=== PATIENT | male | born 1960 | race Caucasian/White ===

== ENCOUNTER 2023-03-09 20:37 | Inpatient (IN) | payer OTHER ==
[2023-03-09 21:10] VITALS: BMI 27.6
[2023-03-09] MEDS ORDERED: ACETAMINOPHEN 325 MG TABLET (FP) PO PRN ×2 (22:12)
[2023-03-09] MEDS ORDERED: MAG HYDROX/AL HYDROX/SIMETH 30 ML UNIT-DOSE CUP PO PRN (22:12)
[2023-03-09] MEDS ORDERED: DICYCLOMINE HCL 10 MG CAPSULE PO PRN (22:12)
[2023-03-09] MEDS ORDERED: BENZOCAINE/MENTHOL (CHLORASEPTIC ) LOZENGE MM PRN (22:12)
[2023-03-09] MEDS ORDERED: ONDANSETRON *ODT* 4 MG TABLET SL PRN (22:12)
[2023-03-09] MEDS ORDERED: BENZONATATE 200 MG CAPSULE PO PRN (22:12)
[2023-03-09] MEDS ORDERED: P-EPHED 60MG/TRIPROLIDI 2.5MG TABLET PO PRN (22:12)
[2023-03-09] MEDS ORDERED: POLYETHYLENE GLYCOL (HEALTHYLAX) 3350 17 GM PACKET PO PRN (22:12)
[2023-03-09] MEDS ORDERED: LOPERAMIDE HCL 2 MG CAPSULE PO PRN (22:12)
[2023-03-09] MEDS ORDERED: MAGNESIUM HYDROX 2400MG/30ML ORAL SUSPENSION 30 ML CUP PO PRN (22:12)
[2023-03-09] MEDS ORDERED: guaiFENesin 600 MG TABLET.ER (FP) PO PRN (22:12)
[2023-03-09] MEDS ORDERED: chlordiazePOXIDE HCL 25 MG CAPSULE PO PRN (22:14)
[2023-03-10] MEDS: chlordiazePOXIDE HCL 25 MG CAPSULE PO SCH ×5 (01:45→22:23)
[2023-03-10] MEDS ORDERED: cloNIDine HCL 0.1 MG TABLET PO ONE (02:03)
[2023-03-10 09:40] LABS: HEMATOCRIT 37.9 % (35.4-49); HEMOGLOBIN 12.9 GM/dL (11.7-16.9); MCH 31.5 pg (25.7-33.7); MEAN CELL VOLUME 92.8 fl (80-96); MEAN PLT VOLUME 7.5 fl (7.5-11.1); PLATELET COUNT 292 10^3/uL (134-434); RBC 4.08 M/mm3 (4.00-5.60); RDW 14.1 % (11.9-15.9); WHITE BLOOD COUNT 6.5 K/mm3 (4.0-10.0)
[2023-03-10 09:48] LABS: POTASSIUM 3.7 mmol/L (3.5-5.1)
[2023-03-10 09:54] LABS: CALCIUM 8.9 mg/dL (8.5-10.1)
[2023-03-10 09:55] LABS: BLOOD UREA NITROGEN 10.5 mg/dL (7-18); CREATININE 0.6 mg/dL (0.55-1.3)
[2023-03-10 09:57] LABS: TOT PROT 5.7 g/dl (6.4-8.2)
[2023-03-10 09:59] LABS: BILIRUBIN,TOTAL 0.4 mg/dL (0.2-1)
[2023-03-10] MEDS: hydrOXYzine PAMOATE 25 MG CAPSULE (FP) PO PRN (10:31)
[2023-03-10] MEDS: PRENATAL VITAMINS W/ FOLIC ACID TABLET (FP) PO SCH (10:32)
[2023-03-10] MEDS: THIAMINE HCL 100 MG TABLET (FP) PO SCH (22:23)
[2023-03-10] MEDS: MELATONIN 5 MG TABLETS PO SCH (22:25)
[2023-03-11] MEDS: chlordiazePOXIDE HCL 25 MG CAPSULE PO SCH ×4 (05:37→22:20)
[2023-03-11] MEDS: hydrOXYzine PAMOATE 25 MG CAPSULE (FP) PO PRN ×2 (10:21→18:33)
[2023-03-11] MEDS: PRENATAL VITAMINS W/ FOLIC ACID TABLET (FP) PO SCH (10:21)
[2023-03-11] MEDS: MELATONIN 5 MG TABLETS PO SCH (22:20)
[2023-03-11] MEDS: THIAMINE HCL 100 MG TABLET (FP) PO SCH (22:20)
[2023-03-12] MEDS ORDERED: chlordiazePOXIDE HCL 10 MG CAPSULE PO PRN
[2023-03-12] MEDS ORDERED: chlordiazePOXIDE HCL 10 MG CAPSULE PO SCH (05:00)
[2023-03-12] MEDS: hydrOXYzine PAMOATE 25 MG CAPSULE (FP) PO PRN ×2 (10:33→20:44)
[2023-03-12] MEDS: PRENATAL VITAMINS W/ FOLIC ACID TABLET (FP) PO SCH (10:33)
[2023-03-12] MEDS: diazePAM 5 MG TABLET PO PRN ×2 (11:13→19:49)
[2023-03-12] MEDS: MELATONIN 5 MG TABLETS PO SCH (22:17)
[2023-03-12] MEDS: THIAMINE HCL 100 MG TABLET (FP) PO SCH (22:17)
[2023-03-13] MEDS ORDERED: chlordiazePOXIDE HCL 10 MG CAPSULE PO SCH (05:00)
[2023-03-13] MEDS: diazePAM 5 MG TABLET PO SCH ×2 (05:53→10:24)
[2023-03-13 06:32] VITALS: RESP 18
[2023-03-13 09:09] VITALS: BP 137/83; PULSE 72; TEMP 97.5
[2023-03-13] MEDS: PRENATAL VITAMINS W/ FOLIC ACID TABLET (FP) PO SCH (10:23)
[2023-03-14] MEDS ORDERED: diazePAM 5 MG TABLET PO ONE (05:00)
[2023-03-14] MEDS ORDERED: chlordiazePOXIDE HCL 10 MG CAPSULE PO ONE (05:00)
== END 2023-03-13 11:09 | disposition home or self-care (01) | DRG 775 ==
LOC: YASAS 20:37 → Y6N 23:47
PROVIDERS: ADMIT Allergy & Immunology; ATTEND Surgery
PROC: HZ2ZZZZ Detoxification Services for Substance Abuse Treatment (ICD-10-PCS; principal; 2023-03-09)
DX: F10.230 Alcohol dependence with withdrawal, uncomplicated (principal); F12.20 Cannabis dependence, uncomplicated; F10.280 Alcohol dependence with alcohol-induced anxiety disorder; F10.282 Alcohol dependence with alcohol-induced sleep disorder; M17.0 Bilateral primary osteoarthritis of knee; S72.91XD Unspecified fracture of right femur, subsequent encounter for closed fracture with routine healing; V49.9XXD Car occupant (driver) (passenger) injured in unspecified traffic accident, subsequent encounter
CPT/HCPCS: 36415; 80053; 85027; 86780; 87635; 87811